=== PATIENT | male | born 1965 | race Hispanic/Latino ===

== ENCOUNTER 2022-08-06 19:38 | Emergency (ER) | payer BC ==
[~2022-08-06] VITALS: Ht 167.6 cm; Wt 90.0 kg
[2022-08-06 20:10] LABS: BASOPHILS % (AUTO) 0.6 % (0.0-5.0); EOSINOPHILS % (AUTO) 0.5 % (0.0-8.0); HEMATOCRIT 39.9 % (42-54); LYMPHOCYTES % (AUTO) 12.7 % (21.0-51.0); MEAN CORPUSCULAR HEMOGLOBIN 29.4 pg (27.0-33.0); MEAN CORPUSCULAR HGB CONC 33.6 g/dL (32.0-36.0); MEAN CORPUSCULAR VOLUME 87.5 fL (79-99); NEUTROPHILS % (AUTO) 76.3 % (40.0-77.0); PLATELET COUNT (AUTO) 233 K/uL (130-400); RED BLOOD CELL COUNT(AUTO) 4.56 MIL/uL (4.50-6.20); RED CELL DISTRIBUTION WIDTH 12.9 % (11.0-15.5)
[2022-08-06 20:20] LABS: POTASSIUM 3.3 mmol/L (3.5-5.1)
[2022-08-06 20:27] LABS: ALBUMIN 4.4 g/dL (3.5-5.0)
[2022-08-06] MEDS ORDERED: ALTEPLASE 100MG 1 VIAL IVP SCH (20:30)
[2022-08-06 20:34] LABS: INR 1.02 (0.85-1.15); PROTHROMBIN TIME 11.1 SEC (9.6-11.6)
[2022-08-06 20:36] LABS: PARTIAL THROMBOPLASTIN TIME 27.3 SEC (26.3-35.5)
[2022-08-06 21:05] VITALS: BP 138/69
== END 2022-08-06 21:57 | disposition short-term general hospital (02) ==
LOC: EDBD 19:38 → EDH 19:38
DX: I63.89 Other cerebral infarction (principal); I10 Essential (primary) hypertension; E78.5 Hyperlipidemia, unspecified
CPT/HCPCS: 99291; 96374; 70450; 71045; 84484; 80053; 85025; 85610; 85730; 86850; 86900; 86901; 36415; 51702; 93005; J2997